=== PATIENT | male | born 1970 | race Two or more races ===

== ENCOUNTER → 2021-01-28 | Emergency (ER) | payer OTHER ==
[~2021-01-28] VITALS: Ht 180.3 cm; Wt 95.3 kg
[~2021-01-28] MED LIST: COZAAR100 MG; TERAZOSIN HCL2 M1
== END | disposition left against medical advice (07) ==
LOC: ER 13:07
DX: R07.9 Chest pain, unspecified (principal); Z53.21 Procedure and treatment not carried out due to patient leaving prior to being seen by health care provider